=== PATIENT | male | born 1995 | race Hispanic/Latino ===

== ENCOUNTER 2024-05-21 09:03 | Outpatient (CLI) | payer OTHER ==
[2024-05-21 09:47] LABS: %Basophils 1.2 % (0.0-1.0); %Eosinophils 3.5 % (0.0-10.0); %Lymphocytes 21.5 % (21.0-51.0); %Neutrophils 66.1 % (42.0-75.0); Hematocrit 48.3 % (42.0-52.0); Hemoglobin 16.4 g/dL (14.0-18.0); Mean Corpuscular Hemoglobin 29.8 pg (27.0-31.0); Mean Corpuscular Volume 87.8 fL (78.0-98.0); Mean Platelet Volume 10.6 fL (7.4-10.4); Platelet Count 234 10x3/uL (130-400); RBC Distribution Width 12.2 % (11.5-14.5)
== END 2024-05-21 09:04 | disposition home or self-care (01) ==
LOC: LABBT 09:03
PROVIDERS: ATTEND Student in an Organized Health Care Education/Training Program
DX: Z01.812 Encounter for preprocedural laboratory examination (principal); M23.91 Unspecified internal derangement of right knee
CPT/HCPCS: 85025

== ENCOUNTER 2024-05-25 05:53 | Day surgery (SDC) | payer OTHER ==
[2024-05-21 09:35] VITALS: BMI 29.5
[2024-05-25] MEDS ORDERED: Tranexamic Acid 1,000 MG/10 ML VIAL ONE (06:11)
[2024-05-25] MEDS ORDERED: Sodium Chloride 0.9% 100 ML ONE (06:12)
[2024-05-25] MEDS ORDERED: fentaNYL PF 100 MCG/2 ML SYRINGE ONE ×4 (06:21→11:24)
[2024-05-25] MEDS ORDERED: Midazolam HCl 2 mg/2 ml Vial ONE (06:21)
[2024-05-25] MEDS ORDERED: PROPOFOL 40 ML ONE (06:21)
[2024-05-25] MEDS ORDERED: Bupivacaine HCl 0.5%/Epinephrine 1:200,000/PF 30 ml Vial ONE (06:55)
[2024-05-25] MEDS ORDERED: CEFAZOLIN 2 GM VIAL ONE (06:56)
[2024-05-25] MEDS ORDERED: Ondansetron PF 4 MG/2 ML Vial IVP PRN (07:15)
[2024-05-25] MEDS ORDERED: Promethazine HCl 25 MG/ML VIAL IM PRN (07:15)
[2024-05-25] MEDS ORDERED: Zolpidem Tartrate 5 MG TAB PO PRN (07:15)
[2024-05-25] MEDS ORDERED: fentaNYL 50 mcg/mL 1 mL Vial SLOW IVP PRN (07:15)
[2024-05-25] MEDS ORDERED: Ropivacaine 0.2% 550 ML 550 ML NERVE BLCK SCH (07:15)
[2024-05-25] MEDS ORDERED: traMADol HCl 50 MG TAB PO PRN ×2 (07:15)
[2024-05-25] MEDS ORDERED: Dexamethasone 20 MG/5 ML VIAL ONE (07:38)
[2024-05-25] MEDS ORDERED: Ondansetron PF 4 MG/2 ML Vial ONE ×2 (07:38→14:39)
[2024-05-25] MEDS ORDERED: Bupivacaine PF 0.5% 30 ML VIAL ONE (08:17)
[2024-05-25] MEDS ORDERED: Labetalol HCl 100 MG/20 ML VIAL ONE (09:39)
[2024-05-25] MEDS ORDERED: HYDROmorphone 2 MG/ML VIAL ONE (09:39)
[2024-05-25] MEDS ORDERED: Sodium Chloride 0.9% 250 ML 250 ML ONE (09:41)
[2024-05-25] MEDS ORDERED: Ketorolac Tromethamine 30 MG (1 mL) VIAL IVP SCH (12:00)
== END 2024-05-25 15:10 | disposition home or self-care (01) ==
LOC: SDC 05:53
PROVIDERS: ATTEND Student in an Organized Health Care Education/Training Program
PROC: 0MRN47Z Replacement of Right Knee Bursa and Ligament with Autologous Tissue Substitute, Percutaneous Endoscopic Approach (ICD-10-PCS; principal; 2024-05-25)
PROC: 3E0T3BZ Introduction of Anesthetic Agent into Peripheral Nerves and Plexi, Percutaneous Approach (ICD-10-PCS; principal; 2024-05-25)
PROC: 0SQC4ZZ Repair Right Knee Joint, Percutaneous Endoscopic Approach (ICD-10-PCS; principal; 2024-05-25)
DX: S83.511A Sprain of anterior cruciate ligament of right knee, initial encounter (principal); M23.91 Unspecified internal derangement of right knee; M23.203 Derangement of unspecified medial meniscus due to old tear or injury, right knee; Z98.890 Other specified postprocedural states; W50.1XXA Accidental kick by another person, initial encounter; Y93.66 Activity, soccer
CPT/HCPCS: A4306; C1713; J0665; J1100; J2250; J2405; J2704; J2795; J7050